=== PATIENT | male | born 1950 | race Asian ===

== ENCOUNTER 2016-11-15 02:19 | Emergency (ER) | payer BC, OTHER ==
[~2016-11-15] VITALS: Ht 152.4 cm; Wt 61.2 kg
[~2016-11-15 02:19] MED LIST: COREG; GLYPIZIDE; METFORMIN; PLAVIX
[2016-11-15 02:34] VITALS: BP_SYST 160
[2016-11-15 03:26] LABS: BILIRUBIN,URINE NEGATIVE (NEGATIVE); BLOOD, URINE 3+ (NEGATIVE); CLARITY/URINE CLEAR (CLEAR); COLOR,URINE YELLOW (YELLOW); GLUCOSE,URINE NEGATIVE (NEGATIVE); KETONES,URINE NEGATIVE (NEGATIVE); LEUKOCYTE ESTERASE ,URINE NEGATIVE (NEGATIVE); NITRITE, URINE NEGATIVE (NEGATIVE); PROTEIN URINE NEGATIVE (NEGATIVE); UROBILINOGEN,URINE 0.2 (0.2-1.0)
[2016-11-15 03:31] VITALS: BP_SYST 155
[2016-11-15 03:31] LABS: BACTERIA,URINE FEW /HPF (None Seen); RBC,URINE 0-3 /HPF (0-3); WBC,URINE 0-3 /HPF (0-3)
== END 2016-11-15 03:31 | disposition home or self-care (01) ==
LOC: SED 02:19
DX: R33.8 Other retention of urine (principal); N40.0 Benign prostatic hyperplasia without lower urinary tract symptoms; I10 Essential (primary) hypertension; I11.9 Hypertensive heart disease without heart failure; E11.9 Type 2 diabetes mellitus without complications; Z88.6 Allergy status to analgesic agent
CPT/HCPCS: 81000-TC; 99284

== ENCOUNTER 2018-05-30 00:22 | Emergency (ER) | payer OTHER ==
[~2018-05-30] VITALS: Ht 152.4 cm; Wt 61.2 kg
[2018-05-30 00:29] VITALS: BP_SYST 122
[2018-05-30 01:05] VITALS: BP_SYST 120
== END 2018-05-30 01:05 | disposition home or self-care (01) ==
LOC: SED 00:22
DX: R33.9 Retention of urine, unspecified (principal); N40.0 Benign prostatic hyperplasia without lower urinary tract symptoms; E11.9 Type 2 diabetes mellitus without complications; I10 Essential (primary) hypertension; Z86.79 Personal history of other diseases of the circulatory system; Z88.6 Allergy status to analgesic agent; Z79.899 Other long term (current) drug therapy
CPT/HCPCS: 99284

== ENCOUNTER 2018-10-10 05:50 | Emergency (ER) | payer OTHER ==
[~2018-10-10] VITALS: Ht 152.4 cm; Wt 61.2 kg
[2018-10-10 06:08] VITALS: BP_SYST 131
--- NOTE | 2018-10-10 06:08 | NUR ---
Pt ambulatory to bed 5 for evaluation
--- NOTE | 2018-10-10 06:08 | NUR ---
Pt c/o urinary retention and chills x 4 hours. Pt states that he has the urge to urinate, but only "a little bit" comes out. Bladder appears distended, tender to palpation. Pt states that he usually has this problem after consuming alcohol. Pt smells of ETOH.
--- NOTE | 2018-10-10 06:15 | NUR ---
Dr. Goode at bedside.
--- NOTE | 2018-10-10 06:25 | NUR ---
# 16 FR Reza catheter with use of sterile technique. Immediate return of 900 cc clear yellow urine noted. Catheter secured to upper leg for pt comfort. Bedside drainage bag placed below level of bladder. Pt tolerated procedure fair. Drainage bag replaced with a leg bag.
[2018-10-10 06:50] VITALS: BP_SYST 126
--- NOTE | 2018-10-10 06:50 | NUR ---
Patient given written and verbal discharge instructions and verbalizes understanding. ER MD discussed with patient the results and treatment provided. Patient in stable condition. ID arm band removed. Rx of Clindamycin given. Patient educated on pain management and to follow up with PMD. Pain Scale 0/10. Opportunity for questions provided and answered. Medication side effect fact sheet provided. F/C secure and patent draining clear yellow urine to leg bag.
== END 2018-10-10 06:50 | disposition home or self-care (01) ==
LOC: SED 05:50
DX: R33.9 Retention of urine, unspecified (principal); E11.9 Type 2 diabetes mellitus without complications; I10 Essential (primary) hypertension; N40.0 Benign prostatic hyperplasia without lower urinary tract symptoms; Z88.6 Allergy status to analgesic agent; Z79.899 Other long term (current) drug therapy; Z86.79 Personal history of other diseases of the circulatory system
CPT/HCPCS: 99284

== ENCOUNTER 2019-01-04 05:47 | Emergency (ER) | payer OTHER ==
[~2019-01-04] VITALS: Ht 152.4 cm; Wt 61.2 kg
[2019-01-04 05:55] VITALS: BP_SYST 149
[2019-01-04 07:07] LABS: BILIRUBIN,URINE NEGATIVE (NEGATIVE); BLOOD, URINE 1+ (NEGATIVE); CLARITY/URINE CLEAR (CLEAR); COLOR,URINE YELLOW (YELLOW); GLUCOSE,URINE NEGATIVE (NEGATIVE); KETONES,URINE NEGATIVE (NEGATIVE); LEUKOCYTE ESTERASE ,URINE NEGATIVE (NEGATIVE); NITRITE, URINE NEGATIVE (NEGATIVE); PH,URINE 5.5 (5.0-8.0); PROTEIN URINE NEGATIVE (NEGATIVE); UROBILINOGEN,URINE 0.2 (0.2-1.0)
[2019-01-04 07:15] LABS: BACTERIA,URINE FEW /HPF (None Seen); RBC,URINE 0-3 /HPF (0-3); WBC,URINE 0-3 /HPF (0-3)
[2019-01-04 07:16] LABS: MUCUS,URINE None Seen /LPF (None Seen)
[2019-01-04 07:32] VITALS: BP_SYST 148
== END 2019-01-04 07:33 | disposition home or self-care (01) ==
LOC: SED 05:47
DX: R33.9 Retention of urine, unspecified (principal); I10 Essential (primary) hypertension; E78.00 Pure hypercholesterolemia, unspecified; E11.9 Type 2 diabetes mellitus without complications
CPT/HCPCS: 81000-TC; 99284

== ENCOUNTER 2020-02-21 13:18 | Inpatient (IN) | payer OTHER, SELFPAY ==
[~2020-02-21] VITALS: Ht 152.4 cm; Wt 59.0 kg
[2020-02-21 13:37] VITALS: BP_SYST 105
[2020-02-21 14:12] LABS: BASOPHILS % (AUTO) 0.1 % (0.0-2.0); EOSINOPHILS % (AUTO) 0.2 % (0.0-4.0); HEMATOCRIT 36.1 % (36-54); HEMOGLOBIN 12.2 g/dL (14.0-18.0); LYMPHOCYTES # (AUTO) 0.6 K/uL (1.0-5.5); LYMPHOCYTES % (AUTO) 10.6 % (20.5-51.5); MEAN CORPUSCULAR HEMOGLOBIN 30 pg (27-31); MEAN CORPUSCULAR HGB CONC 34 % (32-36); MEAN CORPUSCULAR VOLUME 87 fL (79.0-98.0); MONOCYTES # (AUTO) 0.3 K/uL (0.0-1.0); MONOCYTES % (AUTO) 5.4 % (1.7-9.3); NEUTROPHILS % (AUTO) 83.7 % (40.0-70.0); PLATELET COUNT (AUTO) 217 K/uL (130-430); RED BLOOD CELL COUNT(AUTO) 4.14 MIL/uL (4.2-6.2); RED CELL DISTRIBUTION WIDTH 13.3 % (9.0-15.0)
[2020-02-21 14:23] LABS: CALCIUM 9.2 mg/dL (8.4-11.0); CREATININE 2.26 mg/dL (0.55-1.30); POTASSIUM 4.5 mmol/L (3.5-5.1)
[2020-02-21 14:29] LABS: ALBUMIN 3.3 g/dL (3.4-4.8); TOTAL BILIRUBIN 0.4 mg/dL (0.0-1.0)
[2020-02-21 14:36] LABS: BILIRUBIN,URINE NEGATIVE (NEGATIVE); BLOOD, URINE TRACE (NEGATIVE); CLARITY/URINE CLEAR (CLEAR); GLUCOSE,URINE NEGATIVE (NEGATIVE); KETONES,URINE NEGATIVE (NEGATIVE); LEUKOCYTE ESTERASE ,URINE NEGATIVE (NEGATIVE); NITRITE, URINE NEGATIVE (NEGATIVE); PH,URINE 5.5 (5.0-8.0); PROTEIN URINE 2+ (NEGATIVE); UROBILINOGEN,URINE 0.2 (0.2-1.0)
[2020-02-21 14:38] LABS: COLOR,URINE YELLOW (YELLOW)
[2020-02-21 14:42] LABS: BACTERIA,URINE RARE /HPF (None Seen); MUCUS,URINE 1+ /LPF (None Seen); RBC,URINE 0-3 /HPF (0-3); WBC,URINE 0-3 /HPF (0-3)
[2020-02-21 14:45] LABS: C-REACTIVE PROTEIN QUANT 22.1 mg/dL (0-0.5)
[2020-02-21 14:46] LABS: PROTHROMBIN TIME 10.1 SECS (9.5-12.5)
[2020-02-21 15:28] LABS: ERYTHROCYTE SEDIMENTATION RATE 67 MM/HR (0-15)
[2020-02-21] MEDS ORDERED: DEXAMETHASONE SOD PHOSPHATE 4 MG/ML VIAL IVP ONE (15:45)
[2020-02-21] MEDS ORDERED: NACL 0.9% 1,000 ML IV ONE (15:45)
[2020-02-21] MEDS ORDERED: DEXTROSE 50% JECT 50 ML DISP.SYRIN IVP PRN (17:00)
[2020-02-21] MEDS: DEXAMETHASONE SOD PHOSPHATE 10 MG/ML VIAL IVP SCH (17:00)
[2020-02-21] MEDS ORDERED: HEPARIN SODIUM,PORCINE 5,000 UNITS/ML VIAL SUBCUT ONE (17:00)
[2020-02-21] MEDS ORDERED: IPRATROPIUM BROM 0.5 MG/2.5 ML VIAL.NEB (ATROVENT) INH PRN (17:00)
[2020-02-21] MEDS ORDERED: cefTRIAXone 1 GM VIAL ONE (17:03)
[2020-02-21] MEDS ORDERED: AZITHROMYCIN 500 MG/VIAL (ZITHROMAX) IV ONE (17:03)
[2020-02-21] MEDS: cefTRIAXone 1 GM in D5W 50 ML IV SCH (17:10)
[2020-02-21] MEDS: AZITHROMYCIN 500 MG in NS 250 ML IV SCH (17:10)
[2020-02-21] MEDS: NACL 0.9% 1,000 ML IV SCH (17:11)
[2020-02-21] MEDS ORDERED: ALBUTEROL MDI INHALATION 8 GM INH INH PRN (17:15)
[2020-02-21] MEDS: INSULIN REGULAR, HUMAN 100 UNITS/ML, 10 ML VIAL (humuLIN R) SUBCUT PRN (20:31)
[2020-02-22] MEDS: INSULIN REGULAR, HUMAN 100 UNITS/ML, 10 ML VIAL (humuLIN R) SUBCUT PRN ×3 (00:51→18:38)
[2020-02-22 01:04] VITALS: BP_SYST 141
[2020-02-22] MEDS: ALBUTEROL MDI INHALATION 8 GM INH INH SCH ×5 (01:12→19:22)
[2020-02-22 02:00] VITALS: BP_SYST 150
[2020-02-22] MEDS: IPRATROPIUM BROM 0.5 MG/2.5 ML VIAL.NEB (ATROVENT) INH SCH ×2 (07:00→13:00)
[2020-02-22 08:03] LABS: BASOPHILS % (AUTO) 0.3 % (0.0-2.0); HEMATOCRIT 34.9 % (36-54); HEMOGLOBIN 11.6 g/dL (14.0-18.0); LYMPHOCYTES # (AUTO) 0.5 K/uL (1.0-5.5); LYMPHOCYTES % (AUTO) 9.5 % (20.5-51.5); MEAN CORPUSCULAR HEMOGLOBIN 30 pg (27-31); MEAN CORPUSCULAR HGB CONC 33 % (32-36); MEAN CORPUSCULAR VOLUME 89 fL (79.0-98.0); MONOCYTES # (AUTO) 0.2 K/uL (0.0-1.0); MONOCYTES % (AUTO) 3.4 % (1.7-9.3); NEUTROPHILS # (AUTO) 4.1 K/uL (1.8-7.7); NEUTROPHILS % (AUTO) 86.8 % (40.0-70.0); PLATELET COUNT (AUTO) 221 K/uL (130-430); RED BLOOD CELL COUNT(AUTO) 3.94 MIL/uL (4.2-6.2); RED CELL DISTRIBUTION WIDTH 13.5 % (9.0-15.0); WHITE BLOOD COUNT (AUTO) 4.7 K/uL (4.8-10.8)
[2020-02-22 08:21] LABS: ALBUMIN 2.8 g/dL (3.4-4.8); CALCIUM 8.1 mg/dL (8.4-11.0); CREATININE 1.8 mg/dL (0.55-1.30); POTASSIUM 4.5 mmol/L (3.5-5.1); TOTAL BILIRUBIN 0.3 mg/dL (0.0-1.0)
[2020-02-22] MEDS: HEPARIN SODIUM,PORCINE 5,000 UNITS/ML VIAL SUBCUT SCH ×2 (10:04→21:00)
[2020-02-22 10:39] VITALS: BP_SYST 151
[2020-02-22 12:50] VITALS: BP_SYST 143
[2020-02-22] MEDS: NACL 0.9% 1,000 ML IV SCH ×3 (14:45→23:00)
[2020-02-22 16:08] VITALS: BP_SYST 150
[2020-02-22] MEDS: DEXAMETHASONE SOD PHOSPHATE 10 MG/ML VIAL IVP SCH (18:38)
[2020-02-22] MEDS: AZITHROMYCIN 500 MG in NS 250 ML IV SCH (18:38)
[2020-02-22] MEDS: cefTRIAXone 1 GM in D5W 50 ML IV SCH (18:39)
[2020-02-22 20:00] VITALS: BP_SYST 145
[2020-02-23] MEDS: INSULIN REGULAR, HUMAN 100 UNITS/ML, 10 ML VIAL (humuLIN R) SUBCUT PRN ×3 (02:25→18:04)
[2020-02-23] MEDS: ALBUTEROL MDI INHALATION 8 GM INH INH SCH ×3 (08:23→20:20)
[2020-02-23 08:30] VITALS: BP_SYST 151
[2020-02-23] MEDS: HEPARIN SODIUM,PORCINE 5,000 UNITS/ML VIAL SUBCUT SCH ×2 (09:00→21:00)
[2020-02-23 12:11] LABS: BASOPHILS % (AUTO) 0.3 % (0.0-2.0); HEMATOCRIT 39.9 % (36-54); HEMOGLOBIN 13.2 g/dL (14.0-18.0); LYMPHOCYTES # (AUTO) 0.7 K/uL (1.0-5.5); LYMPHOCYTES % (AUTO) 5.3 % (20.5-51.5); MEAN CORPUSCULAR HEMOGLOBIN 29 pg (27-31); MEAN CORPUSCULAR HGB CONC 33 % (32-36); MEAN CORPUSCULAR VOLUME 88 fL (79.0-98.0); MONOCYTES # (AUTO) 0.7 K/uL (0.0-1.0); MONOCYTES % (AUTO) 5.5 % (1.7-9.3); NEUTROPHILS % (AUTO) 88.9 % (40.0-70.0); PLATELET COUNT (AUTO) 298 K/uL (130-430); RED BLOOD CELL COUNT(AUTO) 4.56 MIL/uL (4.2-6.2); RED CELL DISTRIBUTION WIDTH 13.5 % (9.0-15.0); WHITE BLOOD COUNT (AUTO) 12.4 K/uL (4.8-10.8)
[2020-02-23 12:30] VITALS: BP_SYST 145
[2020-02-23 12:35] LABS: CALCIUM 9.1 mg/dL (8.4-11.0); POTASSIUM 4.5 mmol/L (3.5-5.1); TOTAL BILIRUBIN 0.3 mg/dL (0.0-1.0)
[2020-02-23 12:42] LABS: CREATININE 1.7 mg/dL (0.55-1.30)
[2020-02-23 15:00] VITALS: BP_SYST 151
[2020-02-23] MEDS: AZITHROMYCIN 500 MG in NS 250 ML IV SCH (18:05)
[2020-02-23] MEDS: NACL 0.9% 1,000 ML IV SCH ×2 (18:05→19:00)
[2020-02-23] MEDS: DEXAMETHASONE SOD PHOSPHATE 10 MG/ML VIAL IVP SCH (18:05)
[2020-02-23] MEDS: cefTRIAXone 1 GM in D5W 50 ML IV SCH (18:12)
[2020-02-23 18:29] VITALS: BP_SYST 133
[2020-02-23 20:00] VITALS: BP_SYST 140
[2020-02-24] VITALS: BP_SYST 138
[2020-02-24] MEDS: ALBUTEROL MDI INHALATION 8 GM INH INH SCH ×3 (02:00→14:19)
[2020-02-24] MEDS: NACL 0.9% 1,000 ML IV SCH ×2 (05:00→16:00)
[2020-02-24] MEDS: INSULIN REGULAR, HUMAN 100 UNITS/ML, 10 ML VIAL (humuLIN R) SUBCUT PRN ×4 (07:02→17:17)
[2020-02-24 07:23] LABS: BASOPHILS % (AUTO) 0.1 % (0.0-2.0); HEMATOCRIT 35.9 % (36-54); HEMOGLOBIN 12.2 g/dL (14.0-18.0); LYMPHOCYTES # (AUTO) 0.6 K/uL (1.0-5.5); LYMPHOCYTES % (AUTO) 6.2 % (20.5-51.5); MEAN CORPUSCULAR HEMOGLOBIN 30 pg (27-31); MEAN CORPUSCULAR HGB CONC 34 % (32-36); MEAN CORPUSCULAR VOLUME 87 fL (79.0-98.0); MONOCYTES # (AUTO) 0.5 K/uL (0.0-1.0); MONOCYTES % (AUTO) 5.4 % (1.7-9.3); NEUTROPHILS # (AUTO) 8.6 K/uL (1.8-7.7); NEUTROPHILS % (AUTO) 88.3 % (40.0-70.0); PLATELET COUNT (AUTO) 259 K/uL (130-430); RED BLOOD CELL COUNT(AUTO) 4.11 MIL/uL (4.2-6.2); RED CELL DISTRIBUTION WIDTH 13.5 % (9.0-15.0); WHITE BLOOD COUNT (AUTO) 9.8 K/uL (4.8-10.8)
[2020-02-24 08:32] LABS: ALBUMIN 2.5 g/dL (3.4-4.8); CALCIUM 8.3 mg/dL (8.4-11.0); CREATININE 2.09 mg/dL (0.55-1.30); POTASSIUM 4.7 mmol/L (3.5-5.1); TOTAL BILIRUBIN 0.3 mg/dL (0.0-1.0)
[2020-02-24] MEDS: HEPARIN SODIUM,PORCINE 5,000 UNITS/ML VIAL SUBCUT SCH ×2 (09:00→21:00)
[2020-02-24 11:45] VITALS: BP_SYST 157
[2020-02-24 16:19] VITALS: BP_SYST 165
[2020-02-24] MEDS: DEXAMETHASONE SOD PHOSPHATE 10 MG/ML VIAL IVP SCH (17:12)
[2020-02-24] MEDS: cefTRIAXone 1 GM in D5W 50 ML IV SCH (17:13)
[2020-02-24] MEDS: AZITHROMYCIN 500 MG in NS 250 ML IV SCH (17:49)
[2020-02-24 20:00] VITALS: BP_SYST 150
[2020-02-25] VITALS: BP_SYST 147
[2020-02-25] MEDS: NACL 0.9% 1,000 ML IV SCH ×3 (02:23→21:00)
[2020-02-25] MEDS: INSULIN REGULAR, HUMAN 100 UNITS/ML, 10 ML VIAL (humuLIN R) SUBCUT PRN ×4 (06:00→17:35)
[2020-02-25] MEDS: IPRATROPIUM BROM 0.5 MG/2.5 ML VIAL.NEB (ATROVENT) INH SCH ×3 (07:00→19:00)
[2020-02-25] MEDS: ALBUTEROL MDI INHALATION 8 GM INH INH SCH ×3 (07:00→20:14)
[2020-02-25] MEDS: HEPARIN SODIUM,PORCINE 5,000 UNITS/ML VIAL SUBCUT SCH ×2 (08:54→21:00)
[2020-02-25 12:11] VITALS: BP_SYST 154
[2020-02-25 15:47] VITALS: BP_SYST 150
[2020-02-25 16:34] VITALS: BP_SYST 150
[2020-02-25] MEDS: cefTRIAXone 1 GM in D5W 50 ML IV SCH (16:51)
[2020-02-25] MEDS: DEXAMETHASONE SOD PHOSPHATE 10 MG/ML VIAL IVP SCH (16:52)
[2020-02-25] MEDS: AZITHROMYCIN 500 MG in NS 250 ML IV SCH (18:10)
[2020-02-25 20:00] VITALS: BP_SYST 145
[2020-02-26] VITALS: BP_SYST 153
[2020-02-26] MEDS: IPRATROPIUM BROM 0.5 MG/2.5 ML VIAL.NEB (ATROVENT) INH SCH ×2 (01:00→19:00)
[2020-02-26] MEDS: ALBUTEROL MDI INHALATION 8 GM INH INH SCH ×4 (02:30→19:35)
[2020-02-26] MEDS: INSULIN REGULAR, HUMAN 100 UNITS/ML, 10 ML VIAL (humuLIN R) SUBCUT PRN ×3 (06:43→11:41)
[2020-02-26] MEDS: NACL 0.9% 1,000 ML IV SCH ×2 (07:00→17:28)
[2020-02-26 08:39] VITALS: BP_SYST 116
[2020-02-26] MEDS: HEPARIN SODIUM,PORCINE 5,000 UNITS/ML VIAL SUBCUT SCH ×2 (08:44→21:59)
[2020-02-26 12:14] LABS: BASOPHILS % (AUTO) 0.2 % (0.0-2.0); HEMATOCRIT 31.1 % (36-54); HEMOGLOBIN 10.4 g/dL (14.0-18.0); LYMPHOCYTES # (AUTO) 0.4 K/uL (1.0-5.5); LYMPHOCYTES % (AUTO) 5.1 % (20.5-51.5); MEAN CORPUSCULAR HEMOGLOBIN 29 pg (27-31); MEAN CORPUSCULAR HGB CONC 33 % (32-36); MEAN CORPUSCULAR VOLUME 88 fL (79.0-98.0); MONOCYTES # (AUTO) 0.3 K/uL (0.0-1.0); MONOCYTES % (AUTO) 4.2 % (1.7-9.3); NEUTROPHILS # (AUTO) 7.3 K/uL (1.8-7.7); NEUTROPHILS % (AUTO) 90.5 % (40.0-70.0); PLATELET COUNT (AUTO) 221 K/uL (130-430); RED BLOOD CELL COUNT(AUTO) 3.52 MIL/uL (4.2-6.2); RED CELL DISTRIBUTION WIDTH 13.8 % (9.0-15.0); WHITE BLOOD COUNT (AUTO) 8.1 K/uL (4.8-10.8)
[2020-02-26 12:15] VITALS: BP_SYST 155
[2020-02-26 13:57] LABS: CALCIUM 7.6 mg/dL (8.4-11.0); CREATININE 1.47 mg/dL (0.55-1.30); POTASSIUM 4.4 mmol/L (3.5-5.1)
[2020-02-26 14:02] LABS: ALBUMIN 2.1 g/dL (3.4-4.8); TOTAL BILIRUBIN 0.4 mg/dL (0.0-1.0)
[2020-02-26 16:00] VITALS: BP_SYST 149
[2020-02-26] MEDS: cefTRIAXone 1 GM in D5W 50 ML IV SCH (17:28)
[2020-02-26] MEDS: DEXAMETHASONE SOD PHOSPHATE 10 MG/ML VIAL IVP SCH (17:28)
[2020-02-26 20:00] VITALS: BP_SYST 163
[2020-02-27] VITALS (7 sets, daily range): BP systolic 113–162
[2020-02-27] MEDS: IPRATROPIUM BROM 0.5 MG/2.5 ML VIAL.NEB (ATROVENT) INH SCH ×3 (01:00→19:00)
[2020-02-27] MEDS: ALBUTEROL MDI INHALATION 8 GM INH INH SCH ×4 (01:22→20:00)
[2020-02-27] MEDS: INSULIN REGULAR, HUMAN 100 UNITS/ML, 10 ML VIAL (humuLIN R) SUBCUT PRN ×4 (02:45→17:15)
[2020-02-27] MEDS: NACL 0.9% 1,000 ML IV SCH ×2 (03:00→17:00)
[2020-02-27] MEDS: HEPARIN SODIUM,PORCINE 5,000 UNITS/ML VIAL SUBCUT SCH ×2 (10:16→21:00)
[2020-02-27] MEDS: DEXAMETHASONE SOD PHOSPHATE 10 MG/ML VIAL IVP SCH (16:40)
[2020-02-27] MEDS: cefTRIAXone 1 GM in D5W 50 ML IV SCH (17:00)
[2020-02-28] MEDS: IPRATROPIUM BROM 0.5 MG/2.5 ML VIAL.NEB (ATROVENT) INH SCH ×3 (01:00→19:00)
[2020-02-28 01:16] VITALS: BP_SYST 159
[2020-02-28] MEDS: ALBUTEROL MDI INHALATION 8 GM INH INH SCH ×3 (02:40→19:40)
[2020-02-28] MEDS: NACL 0.9% 1,000 ML IV SCH ×3 (04:05→19:00)
[2020-02-28] MEDS: INSULIN REGULAR, HUMAN 100 UNITS/ML, 10 ML VIAL (humuLIN R) SUBCUT PRN ×2 (06:38→11:37)
[2020-02-28] MEDS: HEPARIN SODIUM,PORCINE 5,000 UNITS/ML VIAL SUBCUT SCH ×2 (09:23→20:48)
[2020-02-28 09:30] VITALS: BP_SYST 134
[2020-02-28 11:05] LABS: BASOPHILS # (AUTO) 0.1 K/uL (0.0-0.2); BASOPHILS % (AUTO) 0.4 % (0.0-2.0); HEMATOCRIT 32.8 % (36-54); HEMOGLOBIN 10.9 g/dL (14.0-18.0); LYMPHOCYTES # (AUTO) 0.4 K/uL (1.0-5.5); LYMPHOCYTES % (AUTO) 3.2 % (20.5-51.5); MEAN CORPUSCULAR HEMOGLOBIN 29 pg (27-31); MEAN CORPUSCULAR HGB CONC 33 % (32-36); MEAN CORPUSCULAR VOLUME 88 fL (79.0-98.0); MONOCYTES # (AUTO) 0.4 K/uL (0.0-1.0); MONOCYTES % (AUTO) 2.9 % (1.7-9.3); NEUTROPHILS # (AUTO) 11.8 K/uL (1.8-7.7); NEUTROPHILS % (AUTO) 93.5 % (40.0-70.0); PLATELET COUNT (AUTO) 234 K/uL (130-430); RED BLOOD CELL COUNT(AUTO) 3.73 MIL/uL (4.2-6.2)
[2020-02-28 11:33] LABS: WHITE BLOOD COUNT (AUTO) 12.6 K/uL (4.8-10.8)
[2020-02-28 11:45] LABS: CALCIUM 7.9 mg/dL (8.4-11.0); CREATININE 1.38 mg/dL (0.55-1.30); POTASSIUM 4.9 mmol/L (3.5-5.1)
[2020-02-28 11:51] LABS: ALBUMIN 2.2 g/dL (3.4-4.8); TOTAL BILIRUBIN 0.4 mg/dL (0.0-1.0)
[2020-02-28 12:48] VITALS: BP_SYST 151
[2020-02-28 13:18] VITALS: BP_SYST 151
[2020-02-28 16:00] VITALS: BP_SYST 142
[2020-02-28] MEDS: cefTRIAXone 1 GM in D5W 50 ML IV SCH (17:23)
[2020-02-28] MEDS: DEXAMETHASONE SOD PHOSPHATE 10 MG/ML VIAL IVP SCH (17:24)
[2020-02-28] MEDS: ACETAMINOPHEN 325 MG TABLET PO PRN (17:30)
[2020-02-28 20:00] VITALS: BP_SYST 150
[2020-02-29] VITALS: BP_SYST 140
[2020-02-29] MEDS: IPRATROPIUM BROM 0.5 MG/2.5 ML VIAL.NEB (ATROVENT) INH SCH ×3 (01:00→19:00)
[2020-02-29] MEDS: ALBUTEROL MDI INHALATION 8 GM INH INH SCH ×4 (01:27→20:28)
[2020-02-29] MEDS: NACL 0.9% 1,000 ML IV SCH ×2 (05:02→15:21)
[2020-02-29] MEDS: ACETAMINOPHEN 325 MG TABLET PO PRN ×2 (05:45→23:21)
[2020-02-29] MEDS: INSULIN REGULAR, HUMAN 100 UNITS/ML, 10 ML VIAL (humuLIN R) SUBCUT PRN ×3 (06:30→17:49)
[2020-02-29 08:30] VITALS: BP_SYST 150
[2020-02-29] MEDS: HEPARIN SODIUM,PORCINE 5,000 UNITS/ML VIAL SUBCUT SCH ×2 (08:54→21:00)
[2020-02-29 12:53] VITALS: BP_SYST 142
[2020-02-29] MEDS: cefTRIAXone 1 GM in D5W 50 ML IV SCH (16:49)
[2020-02-29] MEDS: DEXAMETHASONE SOD PHOSPHATE 10 MG/ML VIAL IVP SCH (16:50)
[2020-02-29 17:05] VITALS: BP_SYST 153
[2020-02-29 20:00] VITALS: BP_SYST 150
[2020-03-01] VITALS: BP_SYST 139
[2020-03-01] MEDS: ACETAMINOPHEN 325 MG TABLET PO PRN (00:32)
[2020-03-01] MEDS: INSULIN REGULAR, HUMAN 100 UNITS/ML, 10 ML VIAL (humuLIN R) SUBCUT PRN ×4 (00:59→18:30)
[2020-03-01] MEDS: NACL 0.9% 1,000 ML IV SCH ×3 (01:00→21:00)
[2020-03-01] MEDS: IPRATROPIUM BROM 0.5 MG/2.5 ML VIAL.NEB (ATROVENT) INH SCH (01:00)
[2020-03-01] MEDS: ALBUTEROL MDI INHALATION 8 GM INH INH SCH ×4 (01:00→19:40)
[2020-03-01 07:48] LABS: HEMATOCRIT 30.3 % (36-54); MEAN CORPUSCULAR HEMOGLOBIN 29 pg (27-31); MEAN CORPUSCULAR HGB CONC 33 % (32-36); MEAN CORPUSCULAR VOLUME 88 fL (79.0-98.0); PLATELET COUNT (AUTO) 223 K/uL (130-430); RED BLOOD CELL COUNT(AUTO) 3.45 MIL/uL (4.2-6.2); RED CELL DISTRIBUTION WIDTH 14.3 % (9.0-15.0)
[2020-03-01 08:08] LABS: ALBUMIN 1.9 g/dL (3.4-4.8); CALCIUM 8.1 mg/dL (8.4-11.0); CREATININE 1.29 mg/dL (0.55-1.30); POTASSIUM 4.9 mmol/L (3.5-5.1); TOTAL BILIRUBIN 0.4 mg/dL (0.0-1.0)
[2020-03-01 08:45] VITALS: BP_SYST 159
[2020-03-01] MEDS: HEPARIN SODIUM,PORCINE 5,000 UNITS/ML VIAL SUBCUT SCH ×2 (08:45→21:00)
[2020-03-01 08:53] LABS: WHITE BLOOD COUNT (AUTO) 12.2 K/uL (4.8-10.8)
[2020-03-01 11:01] LABS: ATYPICAL LYMPHOCYTES % 0 % (0-0); BAND % (MANUAL) 1 % (0-6); BASOPHILS % (MANUAL) 0 % (0-2); EOSINOPHILS % (MANUAL) 0 % (0-7); LYMPHOCYTES % (MANUAL) 4 % (20-46); MONOCYTES % (MANUAL) 3 % (0-11)
[2020-03-01 12:35] VITALS: BP_SYST 156
[2020-03-01 16:05] VITALS: BP_SYST 150
[2020-03-01] MEDS: cefTRIAXone 1 GM in D5W 50 ML IV SCH (17:50)
[2020-03-01] MEDS: DEXAMETHASONE SOD PHOSPHATE 10 MG/ML VIAL IVP SCH (17:50)
[2020-03-01 20:00] VITALS: BP_SYST 139
[2020-03-02] VITALS: BP_SYST 144
[2020-03-02 08:00] VITALS: BP_SYST 148
[2020-03-02] MEDS: ALBUTEROL MDI INHALATION 8 GM INH INH SCH ×3 (08:14→19:25)
[2020-03-02 08:47] VITALS: BP_SYST 148
[2020-03-02] MEDS: NACL 0.9% 1,000 ML IV SCH ×2 (09:03→17:40)
[2020-03-02] MEDS: HEPARIN SODIUM,PORCINE 5,000 UNITS/ML VIAL SUBCUT SCH ×2 (09:04→20:50)
[2020-03-02] MEDS ORDERED: FUROSEMIDE 20 MG/2 ML VIAL IVP ONE (11:00)
[2020-03-02 12:54] VITALS: BP_SYST 134
[2020-03-02] MEDS: IPRATROPIUM BROM 0.5 MG/2.5 ML VIAL.NEB (ATROVENT) INH SCH (13:00)
[2020-03-02] MEDS: INSULIN REGULAR, HUMAN 100 UNITS/ML, 10 ML VIAL (humuLIN R) SUBCUT PRN ×3 (13:14→23:10)
[2020-03-02] MEDS: PIPERACILLIN/TAZO 3.375/DEX-IS 50 ML IV SCH ×3 (13:14→23:10)
[2020-03-02 16:22] VITALS: BP_SYST 142
[2020-03-02] MEDS: DEXAMETHASONE SOD PHOSPHATE 10 MG/ML VIAL IVP SCH (17:40)
[2020-03-02 20:00] VITALS: BP_SYST 144
[2020-03-02] MEDS: FUROSEMIDE 20 MG/2 ML VIAL IVP SCH (20:50)
[2020-03-03] VITALS (10 sets, daily range): BP systolic 119–165
[2020-03-03] MEDS: ALBUTEROL MDI INHALATION 8 GM INH INH SCH ×3 (02:00→13:56)
[2020-03-03] MEDS: NACL 0.9% 1,000 ML IV SCH ×3 (03:00→23:00)
[2020-03-03] MEDS: PIPERACILLIN/TAZO 3.375/DEX-IS 50 ML IV SCH ×3 (05:04→18:35)
[2020-03-03] MEDS: INSULIN REGULAR, HUMAN 100 UNITS/ML, 10 ML VIAL (humuLIN R) SUBCUT PRN ×3 (05:04→17:39)
[2020-03-03] MEDS ORDERED: FUROSEMIDE 40 MG/4 ML VIAL ONE ×2 (10:09→23:31)
[2020-03-03] MEDS: FUROSEMIDE 20 MG/2 ML VIAL IVP SCH ×2 (10:16→21:00)
[2020-03-03] MEDS: HEPARIN SODIUM,PORCINE 5,000 UNITS/ML VIAL SUBCUT SCH ×2 (10:17→21:00)
[2020-03-03] MEDS ORDERED: ASCORBIC ACID 500 MG TABLET PO ONE (10:30)
[2020-03-03] MEDS ORDERED: CHOLECALCIFEROL (VITAMIN D3) 5,000 UNIT TABLET PO ONE (10:30)
[2020-03-03 11:16] LABS: CALCIUM 7.9 mg/dL (8.4-11.0); CREATININE 1.62 mg/dL (0.55-1.30); POTASSIUM 5.2 mmol/L (3.5-5.1)
[2020-03-03 11:22] LABS: ALBUMIN 1.8 g/dL (3.4-4.8); TOTAL BILIRUBIN 0.5 mg/dL (0.0-1.0)
[2020-03-03] MEDS: DEXAMETHASONE SOD PHOSPHATE 10 MG/ML VIAL IVP SCH (17:24)
[2020-03-03] MEDS: ASCORBIC ACID 500 MG TABLET PO SCH (21:00)
[2020-03-04] VITALS (23 sets, daily range): BP systolic 66–157
[2020-03-04] MEDS ORDERED: NOREPINEPHRINE BITARTRATE 4 MG in NS 246 ML IV PRN ×2
[2020-03-04] MEDS ORDERED: NOREPINEPHRINE 4 MG/4 ML VIAL IV ONE ×2 (00:30→02:06)
[2020-03-04] MEDS: ALBUTEROL MDI INHALATION 8 GM INH INH SCH ×2 (01:00→20:42)
[2020-03-04] MEDS: INSULIN REGULAR, HUMAN 100 UNITS/ML, 10 ML VIAL (humuLIN R) SUBCUT PRN ×2 (01:42→12:38)
[2020-03-04] MEDS: PIPERACILLIN/TAZO 3.375/DEX-IS 50 ML IV SCH ×2 (06:00)
[2020-03-04] MEDS: NACL 0.9% 1,000 ML IV SCH (09:17)
[2020-03-04] MEDS: FUROSEMIDE 20 MG/2 ML VIAL IVP SCH ×2 (09:18→21:00)
[2020-03-04] MEDS: CHOLECALCIFEROL (VITAMIN D3) 5,000 UNIT TABLET PO SCH (09:18)
[2020-03-04] MEDS: ASCORBIC ACID 500 MG TABLET PO SCH ×2 (09:18→21:28)
[2020-03-04] MEDS ORDERED: PROPOFOL DRIP 100 ML IV PRN (11:15)
[2020-03-04 11:27] LABS: ALBUMIN 1.8 g/dL (3.4-4.8); CALCIUM 7.3 mg/dL (8.4-11.0); CREATININE 2.02 mg/dL (0.55-1.30); POTASSIUM 5.2 mmol/L (3.5-5.1); TOTAL BILIRUBIN 0.8 mg/dL (0.0-1.0)
[2020-03-04 11:43] LABS: INR 1.2 (0.80-1.20); PROTHROMBIN TIME 12.5 SECS (9.5-12.5)
[2020-03-04] MEDS ORDERED: NALOXONE HCL 0.4 MG/ML AMP (NARCAN) IVP PRN (15:15)
[2020-03-04] MEDS ORDERED: MORPHINE I.V. DRIP 100 ML IV PRN (15:15)
[2020-03-04] MEDS: MIDAZOLAM HCL IN 0.9 % NACL/PF 50 ML IV PRN (15:47)
[2020-03-04 17:48] LABS: BASOPHILS # (AUTO) 0.1 K/uL (0.0-0.2); BASOPHILS % (AUTO) 0.5 % (0.0-2.0); EOSINOPHILS % (AUTO) 0.2 % (0.0-4.0); LYMPHOCYTES # (AUTO) 0.9 K/uL (1.0-5.5); LYMPHOCYTES % (AUTO) 6.1 % (20.5-51.5); MEAN CORPUSCULAR HEMOGLOBIN 30 pg (27-31); MEAN CORPUSCULAR HGB CONC 33 % (32-36); MEAN CORPUSCULAR VOLUME 90 fL (79.0-98.0); MONOCYTES # (AUTO) 0.6 K/uL (0.0-1.0); MONOCYTES % (AUTO) 4.2 % (1.7-9.3); PLATELET COUNT (AUTO) 73 K/uL (130-430); RED BLOOD CELL COUNT(AUTO) 2.21 MIL/uL (4.2-6.2); RED CELL DISTRIBUTION WIDTH 15.3 % (9.0-15.0); WHITE BLOOD COUNT (AUTO) 14.7 K/uL (4.8-10.8)
[2020-03-04 17:54] LABS: HEMATOCRIT 19.8 % (36-54); HEMOGLOBIN 6.5 g/dL (14.0-18.0)
[2020-03-04] MEDS: DEXAMETHASONE SOD PHOSPHATE 10 MG/ML VIAL IVP SCH (17:58)
[2020-03-04] MEDS ORDERED: VASOPRESSIN 40 UNITS in NS 38 ML IV PRN (23:30)
[2020-03-04] MEDS ORDERED: PHENYLEPHRINE HCL 50 MG in NS 245 ML IV PRN (23:45)
[2020-03-04] MEDS ORDERED: VASOPRESSIN 20 UNITS/ML VIAL IV ONE (23:45)
[2020-03-05] VITALS (19 sets, daily range): BP systolic 70–113
[2020-03-05] MEDS: INSULIN REGULAR, HUMAN 100 UNITS/ML, 10 ML VIAL (humuLIN R) SUBCUT PRN ×3 (00:38→12:16)
[2020-03-05] MEDS: ALBUTEROL MDI INHALATION 8 GM INH INH SCH (00:57)
[2020-03-05] MEDS ORDERED: NOREPINEPHRINE 4 MG/4 ML VIAL IV ONE (05:20)
[2020-03-05] MEDS: PIPERACILLIN/TAZO 3.375/DEX-IS 50 ML IV SCH ×3 (05:23→12:15)
[2020-03-05 06:09] LABS: HEMOGLOBIN 7.6 g/dL (14.0-18.0); LYMPHOCYTES # (AUTO) 0.7 K/uL (1.0-5.5); MONOCYTES # (AUTO) 0.4 K/uL (0.0-1.0); RED BLOOD CELL COUNT(AUTO) 2.65 MIL/uL (4.2-6.2)
[2020-03-05 06:22] LABS: ALBUMIN 1.6 g/dL (3.4-4.8); CREATININE 2.92 mg/dL (0.55-1.30); TOTAL BILIRUBIN 1.2 mg/dL (0.0-1.0)
[2020-03-05 06:29] LABS: BASOPHILS % (AUTO) 0.2 % (0.0-2.0); HEMATOCRIT 23.7 % (36-54); LYMPHOCYTES % (AUTO) 4.9 % (20.5-51.5); MEAN CORPUSCULAR HEMOGLOBIN 29 pg (27-31); MEAN CORPUSCULAR HGB CONC 32 % (32-36); MEAN CORPUSCULAR VOLUME 89 fL (79.0-98.0); MONOCYTES % (AUTO) 2.9 % (1.7-9.3); NEUTROPHILS # (AUTO) 13.6 K/uL (1.8-7.7); RED CELL DISTRIBUTION WIDTH 14.4 % (9.0-15.0); WHITE BLOOD COUNT (AUTO) 14.8 K/uL (4.8-10.8)
[2020-03-05 06:38] LABS: PLATELET COUNT (AUTO) 45 K/uL (130-430)
[2020-03-05 08:43] LABS: CALCIUM 6.7 mg/dL (8.4-11.0); POTASSIUM 6.2 mmol/L (3.5-5.1)
[2020-03-05] MEDS: ASCORBIC ACID 500 MG TABLET PO SCH (08:46)
[2020-03-05] MEDS: FUROSEMIDE 20 MG/2 ML VIAL IVP SCH (08:46)
[2020-03-05] MEDS: CHOLECALCIFEROL (VITAMIN D3) 5,000 UNIT TABLET PO SCH (08:46)
[2020-03-05] MEDS: MIDAZOLAM HCL IN 0.9 % NACL/PF 50 ML IV PRN (12:36)
[2020-03-05] MEDS ORDERED: SODIUM BICARBONATE 8.4% JECT 100 MEQ in 0.45% NACL 1,000 ML IVP SCH (13:00)
[2020-03-05] MEDS ORDERED: SODIUM BICARBONATE 8.4% JECT 50 MEQ/50 ML SYRINGE ONE (13:07)
[2020-03-05] MEDS ORDERED: SODIUM BICARBONATE 8.4% VIAL 50 MEQ/50 ML VIAL INJ ONE (13:15)
[2020-03-05] MEDS ORDERED: ETOMIDATE 20 MG/ 10 ML VIAL (AMIDATE) IVP ONE (13:35)
[2020-03-05] MEDS ORDERED: ROCURONIUM BROMIDE 10 MG/ML (ZEMURON) IV ONE (13:35)
== END 2020-03-05 14:54 | disposition expired | DRG 871 ==
LOC: SED 13:18 → STU 15:38 → SIC 03-03 21:40
PROVIDERS: ADMIT Internal Medicine Hospice and Palliative Medicine; ATTEND Internal Medicine Hospice and Palliative Medicine
PROC: 5A09457 Assistance with Respiratory Ventilation, 24-96 Consecutive Hours, Continuous Positive Airway Pressure (ICD-10-PCS; 2020-03-02)
PROC: 5A1945Z Respiratory Ventilation, 24-96 Consecutive Hours (ICD-10-PCS; principal; 2020-03-03)
PROC: XW13325 Transfusion of Convalescent Plasma (Nonautologous) into Peripheral Vein, Percutaneous Approach, New Technology Group 5 (ICD-10-PCS; 2020-03-03)
PROC: 0BH17EZ Insertion of Endotracheal Airway into Trachea, Via Natural or Artificial Opening (ICD-10-PCS; 2020-03-03)
PROC: XW033E5 Introduction of Remdesivir Anti-infective into Peripheral Vein, Percutaneous Approach, New Technology Group 5 (ICD-10-PCS; 2020-03-03)
PROC: 5A12012 Performance of Cardiac Output, Single, Manual (ICD-10-PCS; 2020-03-05)
PROC: 30233N1 Transfusion of Nonautologous Red Blood Cells into Peripheral Vein, Percutaneous Approach (ICD-10-PCS; 2020-03-05)
DX: A41.9 Sepsis, unspecified organism (principal); U07.1 COVID-19; J96.01 Acute respiratory failure with hypoxia; J12.82 Pneumonia due to coronavirus disease 2019; N17.9 Acute kidney failure, unspecified; E78.5 Hyperlipidemia, unspecified; I25.10 Atherosclerotic heart disease of native coronary artery without angina pectoris; I10 Essential (primary) hypertension; E11.9 Type 2 diabetes mellitus without complications; Z88.0 Allergy status to penicillin; Z79.84 Long term (current) use of oral hypoglycemic drugs; Z79.899 Other long term (current) drug therapy; Z79.01 Long term (current) use of anticoagulants; Z95.1 Presence of aortocoronary bypass graft
CPT/HCPCS: 36415; 36600; 71045; 80053; 81000-TC; 82272; 82803-TC; 82962; 83605; 84484; 85007; 85025; 85027; 85610-TC; 85651-TC; 85730-TC; 86140; 86886; 86900; 86901; 86920; 87040-TC; 87086; 93005; 94002; 94003; 94640; 94660; 94760; 96361; 96374; 99291; C1751; G0378; J0456; J0696; J1100; J1644; J1815; J1940; J2270; J2370; J2543; J2704; J3490; J7030; J7040; J7050; J7060; P9017; P9021